=== PATIENT | male | born 1955 | race Caucasian/White ===

== ENCOUNTER 2018-07-04 21:35 | Emergency (ER) | payer OTHER ==
[2018-07-04] MEDS ORDERED: diphenhydrAMINE HCL 50 MG/ML VIAL IVP ONE (22:00)
[2018-07-04] MEDS: diphenhydrAMINE HCL 50 MG/ML VIAL ONE (22:06)
[2018-07-04 22:20] LABS: BASOPHILS % 0.7 (0.0-1.5); EOSINOPHILS % 1.7 % (0.0-6.8); MEAN CORPUSCULAR HEMOGLOBIN 31.9 pg (28.0-34.0); MEAN CORPUSCULAR VOLUME 95.1 fl (80.0-100.0); MONOCYTES % 7.2 % (0.0-11.0); NEUTROPHILS # 3.5 # k/uL (1.4-7.7)
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
[2018-07-04 22:31] LABS: eGFR (African) > 60; eGFR (Non-African) 59
[2018-07-05] MEDS: diphenhydrAMINE HCL 50 MG/ML VIAL ONE (00:18)
[2018-07-05 01:21] VITALS: BP 118/69
--- NOTE | 2018-07-05 05:52 | Diagnostic Imaging Report ---
LUIS CARLOS SANCHES [facility] [address] [facility] [address] [place], [place]. [address] Report Submission Date: Jul 04, 2018 11:54:20 PM CDT Patient Study Name: BRIANNA HALLMAN Date: Jul 04, 2018 11:00:08 PM CDT Modality Type: CT\\SR Gender: M Description: CT BRAIN W/O CONTRAST : 55 Institution: [facility] Physician: LUIS CARLOS SANCHES CT brain noncontrast Date of study: July 04, 2018 CLINICAL HISTORY: EPISODES OF "ALL OVER SHAKING" (Hx) / ITS.REASON episodes of "all over shaking" (DICOM Hx) / ITS.REASON cough, chest pain (Pt comments) TECHNIQUE: 5 mm contiguous axial images of the brain, noncontrast. FINDINGS: There is no evidence of intracranial mass effect, hemorrhage, or acute hydrocephalus. The lateral ventricles are symmetrical and the 4th ventricle is midline without shift. No acute brain parenchymal changes or extra-axial fluid collections are identified. The posterior fossa contents are within normal limits. The calvarium is intact. The visualized sinuses and mastoid air cells are clear. IMPRESSION: No acute intracranial process. Electronically signed on Jul 04, 2018 11:54:20 PM CDT by: Jose Miguel LUGO
--- NOTE | 2018-07-05 05:53 | Diagnostic Imaging Report ---
LUIS CARLOS SANCHES [facility] [id number] [facility] [address] Report Submission Date: Jul 04, 2018 10:54:32 PM CDT Patient Study Name: BRIANNA HALLMAN Date: Jul 04, 2018 10:32:19 PM CDT Modality Type: DX Gender: M Description: CHEST : 55 Institution: [facility] Physician: LUIS CARLOS SANCHES PA and lateral chest Clinical history: Cough. Chest pain. Findings: Examination of the chest in PA and lateral views with no prior films for comparison demonstrates lungs to be hyperinflated but clear. The cardiac silhouette is prominent and the aorta is atherosclerotic. Monitor leads superimpose the chest. Impression: 1. Aortic atherosclerosis. 2. No active disease. Electronically signed on Jul 04, 2018 10:54:32 PM CDT by: Irvin LUGO
== END 2018-07-05 01:11 | disposition left against medical advice (07) ==
LOC: ED 21:35
DX: R25.8 Other abnormal involuntary movements (principal); G47.9 Sleep disorder, unspecified; R00.0 Tachycardia, unspecified; Z53.9 Procedure and treatment not carried out, unspecified reason
CPT/HCPCS: 70450; 71046; 80053; 82550; 82553; 83880; 84484; 85025; 93005; J1200; 96374; S1016